=== PATIENT | male | born 1945 | race Caucasian/White ===

== ENCOUNTER → 2016-09-15 | Outpatient (CLI) | payer OTHER, BC | LOC: MMPC 09:00 | DX: Z79.01 Long term (current) use of anticoagulants (principal); Z51.81 Encounter for therapeutic drug level monitoring; Z95.2 Presence of prosthetic heart valve | CPT/HCPCS: 85610 ==

== ENCOUNTER → 2016-10-13 | Outpatient (CLI) | payer OTHER, BC | LOC: MMPC 09:00 | DX: Z79.01 Long term (current) use of anticoagulants (principal); Z51.81 Encounter for therapeutic drug level monitoring; Z95.2 Presence of prosthetic heart valve | CPT/HCPCS: 85610 ==

== ENCOUNTER → 2016-10-15 | Outpatient (CLI) | payer OTHER, BC ==
[2016-10-15 10:44] LABS: ASPARTATE AMINO TRANSFERASE 53 IU/L (21-57); BILIRUBIN,TOTAL 0.6 mg/dL (0.3-1.2); BLOOD UREA NITROGEN 23 mg/dL (7-22); CALCIUM 10.3 mg/dL (8.7-10.7); CHLORIDE 98 meq/L (98-112); EST GLOMERULAR FILTRATION > 60 (>60 ml/min/1.73m(2)); GLUCOSE 113 mg/dL (78-110); POTASSIUM 5.3 meq/L (3.8-5.2); SODIUM 136 meq/L (135-145); TOTAL PROTEIN 7.8 g/dL (6.1-8.0)
[2016-10-15 10:46] LABS: HEMOGLOBIN A1C 7.61 % (4.2-6.0); MEAN BLOOD GLUCOSE (CALC) 167.413 mg/dL
== END ==
LOC: MOB LAB 09:36
DX: E11.9 Type 2 diabetes mellitus without complications (principal); E78.5 Hyperlipidemia, unspecified
CPT/HCPCS: 36415; 80053; 83036

== ENCOUNTER → 2016-10-23 | Outpatient (CLI) | payer OTHER, BC | LOC: MMPC 09:00 | DX: Z79.01 Long term (current) use of anticoagulants (principal); Z51.81 Encounter for therapeutic drug level monitoring; Z95.2 Presence of prosthetic heart valve | CPT/HCPCS: 85610 ==

== ENCOUNTER → 2016-11-03 | Outpatient (CLI) | payer OTHER, BC ==
[2016-11-03 11:29] LABS: ASPARTATE AMINO TRANSFERASE 45 IU/L (21-57); BILIRUBIN,TOTAL 0.6 mg/dL (0.3-1.2); BLOOD UREA NITROGEN 21 mg/dL (7-22); BUN/CREATININE RATIO 23.33 (6-20); CALCIUM 9.6 mg/dL (8.7-10.7); CHLORIDE 100 meq/L (98-112); CREATININE 0.9 mg/dL (0.70-1.50); EST GLOMERULAR FILTRATION > 60 (>60 ml/min/1.73m(2)); GLUCOSE 220 mg/dL (78-110); POTASSIUM 5.5 meq/L (3.8-5.2); SODIUM 137 meq/L (135-145); TOTAL PROTEIN 7.3 g/dL (6.1-8.0)
== END ==
LOC: MOB LAB 08:09
PROVIDERS: ATTEND Nurse Practitioner Family
DX: I50.9 Heart failure, unspecified (principal)
CPT/HCPCS: 36415; 80053; 80162

== ENCOUNTER → 2016-11-05 | Outpatient (CLI) | payer OTHER, BC ==
[2016-11-05 16:21] LABS: HEMOGLOBIN A1C 7.14 % (4.2-6.0); MEAN BLOOD GLUCOSE (CALC) 151.762 mg/dL
[2016-11-05 16:38] LABS: ASPARTATE AMINO TRANSFERASE 45 IU/L (21-57); BILIRUBIN,TOTAL 0.5 mg/dL (0.3-1.2); BLOOD UREA NITROGEN 19 mg/dL (7-22); BUN/CREATININE RATIO 17.27 (6-20); CALCIUM 9.7 mg/dL (8.7-10.7); CHLORIDE 98 meq/L (98-112); CREATININE 1.1 mg/dL (0.70-1.50); EST GLOMERULAR FILTRATION > 60 (>60 ml/min/1.73m(2)); GLUCOSE 192 mg/dL (78-110); POTASSIUM 4.6 meq/L (3.8-5.2); SODIUM 137 meq/L (135-145); TOTAL PROTEIN 7.3 g/dL (6.1-8.0)
== END ==
LOC: MOB LAB 14:49
DX: E11.9 Type 2 diabetes mellitus without complications (principal)
CPT/HCPCS: 36415; 80053; 83036

== ENCOUNTER → 2016-11-20 | Outpatient (CLI) | payer OTHER, BC ==
[2016-11-20 12:05] LABS: BLOOD UREA NITROGEN 16 mg/dL (7-22); BUN/CREATININE RATIO 17.77 (6-20); CALCIUM 9.8 mg/dL (8.7-10.7); CHLORIDE 99 meq/L (98-112); CREATININE 0.9 mg/dL (0.70-1.50); EST GLOMERULAR FILTRATION > 60 (>60 ml/min/1.73m(2)); GLUCOSE 180 mg/dL (78-110); POTASSIUM 5.6 meq/L (3.8-5.2); SODIUM 135 meq/L (135-145)
== END ==
LOC: MOB LAB 08:34
PROVIDERS: ATTEND Internal Medicine Cardiovascular Disease
DX: I42.0 Dilated cardiomyopathy (principal)
CPT/HCPCS: 36415; 80048; 80162

== ENCOUNTER → 2016-11-21 | Outpatient (CLI) | payer OTHER, BC ==
[2016-11-21 16:13] LABS: BILIRUBIN,TOTAL 0.5 mg/dL (0.3-1.2); BUN/CREATININE RATIO 15.38 (6-20); CALCIUM 9.4 mg/dL (8.7-10.7); CREATININE 1.3 mg/dL (0.70-1.50); POTASSIUM 4.6 meq/L (3.8-5.2); TOTAL PROTEIN 7.9 g/dL (6.1-8.0)
== END ==
LOC: LAB 15:18
PROVIDERS: ATTEND Internal Medicine Cardiovascular Disease
DX: I42.0 Dilated cardiomyopathy (principal)
CPT/HCPCS: 36415; 80053; 80162

== ENCOUNTER → 2016-12-16 | Outpatient (CLI) | payer OTHER, BC ==
[2016-12-16 08:44] LABS: BLOOD UREA NITROGEN 19 mg/dL (7-22); BUN/CREATININE RATIO 15.83 (6-20); CALCIUM 9.7 mg/dL (8.7-10.7); EST GLOMERULAR FILTRATION > 60 (>60 ml/min/1.73m(2))
== END ==
LOC: LAB 08:12
PROVIDERS: ATTEND Internal Medicine Cardiovascular Disease
DX: I42.0 Dilated cardiomyopathy (principal)
CPT/HCPCS: 36415; 80048; 80162

== ENCOUNTER → 2016-12-17 | Outpatient (CLI) | payer OTHER, BC ==
[2016-12-17 10:36] LABS: BLOOD UREA NITROGEN 20 mg/dL (7-22); CALCIUM 9.5 mg/dL (8.7-10.7); EST GLOMERULAR FILTRATION > 60 (>60 ml/min/1.73m(2))
== END ==
LOC: LAB 09:32
PROVIDERS: ATTEND Internal Medicine Cardiovascular Disease
DX: I42.0 Dilated cardiomyopathy (principal)
CPT/HCPCS: 36415; 80048

== ENCOUNTER → 2016-12-18 | Outpatient (CLI) | payer OTHER, BC | LOC: MMPC 09:00 | DX: Z79.01 Long term (current) use of anticoagulants (principal); Z51.81 Encounter for therapeutic drug level monitoring; Z95.2 Presence of prosthetic heart valve | CPT/HCPCS: 85610 ==

== ENCOUNTER → 2017-01-19 | Outpatient (CLI) | payer OTHER, BC | LOC: MMPC 09:00 | DX: Z79.01 Long term (current) use of anticoagulants (principal); Z51.81 Encounter for therapeutic drug level monitoring; Z95.2 Presence of prosthetic heart valve | CPT/HCPCS: 85610 ==

== ENCOUNTER → 2017-02-11 | Outpatient (CLI) | payer OTHER, BC ==
[2017-02-11 12:38] LABS: HEMOGLOBIN A1C 7.46 % (4.2-6.0)
[2017-02-11 12:44] LABS: BLOOD UREA NITROGEN 23 mg/dL (7-22); CALCIUM 9.6 mg/dL (8.7-10.7); EST GLOMERULAR FILTRATION > 60 (>60 ml/min/1.73m(2))
== END ==
LOC: MOB LAB 11:37
DX: E11.9 Type 2 diabetes mellitus without complications (principal); E55.9 Vitamin D deficiency, unspecified; I49.9 Cardiac arrhythmia, unspecified; G47.33 Obstructive sleep apnea (adult) (pediatric); E78.5 Hyperlipidemia, unspecified; S06.9X9D Unspecified intracranial injury with loss of consciousness of unspecified duration, subsequent encounter; I50.22 Chronic systolic (congestive) heart failure; Z12.5 Encounter for screening for malignant neoplasm of prostate
CPT/HCPCS: 36415; 80048; 82306; 83036; 84443; 99213; G0103; G0463

== ENCOUNTER → 2017-02-13 | Outpatient (CLI) | payer OTHER, BC | LOC: MMPC 09:00 | DX: Z79.01 Long term (current) use of anticoagulants (principal); Z51.81 Encounter for therapeutic drug level monitoring; Z95.2 Presence of prosthetic heart valve | CPT/HCPCS: 85610 ==

== ENCOUNTER → 2017-02-24 | Outpatient (CLI) | payer OTHER, BC | LOC: MMPC 11:11 | PROVIDERS: ATTEND Surgery | DX: Z90.49 Acquired absence of other specified parts of digestive tract (principal) | CPT/HCPCS: 99213; G0463 ==

== ENCOUNTER → 2017-03-09 | Outpatient (CLI) | payer OTHER, BC | LOC: MMPC 09:00 | DX: Z79.01 Long term (current) use of anticoagulants (principal); Z51.81 Encounter for therapeutic drug level monitoring; Z95.2 Presence of prosthetic heart valve | CPT/HCPCS: 85610 ==

== ENCOUNTER 2017-03-11 09:57 | Day surgery (SDC) | payer OTHER, BC ==
[~2017-03-11 09:57] MED LIST: AMPICILLIN/SULBACTAM 3 GM VIAL IV ONE; LIDOCAINE W/ SODIUM BICARB 0.5 ML SYR ONE; Lactated Ringers 1,000 ML PRIMARY IV ONE; MIDAZOLAM 5 MG/1 ML ONE; Sodium Chloride 0.9% 100 ML IV ONE; fentaNYL Inj 100 MCG/2 ML VIAL ONE
--- NOTE | 2017-03-11 10:23 | EKG ---
[address] [address] Measurements Intervals [place] Rate: 71 P: [place]: 0 QRS: -33 QRSD: 158 T: 149 QT: 441 QTc: 464 Interpretive Statements ELECTRONIC VENTRICULAR PACEMAKER ABNORMAL RHYTHM ECG No previous ECG available for comparison Electronically Signed On 03-11-17 17:33:18 MDT by Andrei Perdomo [id number]
[2017-03-11] MEDS ORDERED: AMPICILLIN/SULBACTAM 3 GM VIAL IV ONE (10:41)
[2017-03-11] MEDS ORDERED: Sodium Chloride 0.9% 100 ML IV ONE (10:41)
--- NOTE | 2017-03-11 11:23 | GEN.OPNOTE ---
Colonoscopy Procedure Note Surgery Date: 03/11/17 Preoperative Diagnosis: Colon cancer screening Postoperative Diagnosis: Colon cancer screening. Colon polyps at 2018 and 17 cm Procedure: Colonoscopy snare polypectomy Surgeon: Iker Grimaldo MD Anesthesia Provider: Toni Escalante CRNA Anesthesia Type: MAC Indications: Colon cancer screening. 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 Patient on warfarin therapy has been bridged with Lovenox Findings: Prep : Very good Cecum : Scope advanced all way to cecum. Ileocecal valve clearly identified. Patient normal. Cecum Ascending : Ascending colons free from disease Transverse : Transverse colon free from disease Sigmoid : Descending and sigmoid colon free from disease Rectum : Rectum had 3 small polyps 1 measured actually 20 cm second at 18 third at 17. The polyps at 20 and 17 Center meters were basically destroyed by cautery wanted 18 cm was sent in for pathology Digital Rectal Exam : No rectal masses A lubricated flexible colonoscope was inserted and passed to the blind end of the cecum. Additional Details: Patient resume his Coumadin tonight. INR checked at 11:00 on March 14 he is a continues Lovenox injections
[2017-03-11 13:40] VITALS: RESP 20; TEMP 98.2
== END 2017-03-11 11:54 | disposition home or self-care (01) ==
LOC: SDSC 09:57
PROVIDERS: ATTEND Surgery
DX: Z12.11 Encounter for screening for malignant neoplasm of colon (principal); K63.5 Polyp of colon
CPT/HCPCS: 45385; 93005; 93010; J2704; J3010; J0295; J2250; J7050; J7120

== ENCOUNTER → 2017-03-14 | Outpatient (CLI) | payer OTHER, BC | LOC: MMPC 09:00 | DX: Z79.01 Long term (current) use of anticoagulants (principal); Z51.81 Encounter for therapeutic drug level monitoring; Z95.2 Presence of prosthetic heart valve | CPT/HCPCS: 85610 ==

== ENCOUNTER → 2017-03-16 | Outpatient (CLI) | payer OTHER, BC | LOC: MMPC 09:00 | DX: Z79.01 Long term (current) use of anticoagulants (principal); Z51.81 Encounter for therapeutic drug level monitoring; Z95.2 Presence of prosthetic heart valve | CPT/HCPCS: 85610 ==

== ENCOUNTER → 2017-03-19 | Outpatient (CLI) | payer OTHER, BC | LOC: MMPC 09:00 | DX: Z79.01 Long term (current) use of anticoagulants (principal); Z51.81 Encounter for therapeutic drug level monitoring; Z95.2 Presence of prosthetic heart valve | CPT/HCPCS: 85610 ==

== ENCOUNTER → 2017-03-25 | Outpatient (CLI) | payer OTHER, BC | LOC: MMPC 09:00 | DX: Z79.01 Long term (current) use of anticoagulants (principal); Z51.81 Encounter for therapeutic drug level monitoring; Z95.2 Presence of prosthetic heart valve | CPT/HCPCS: 85610 ==

== ENCOUNTER → 2017-03-31 | Outpatient (CLI) | payer OTHER, BC | LOC: MMPC 09:00 | DX: Z79.01 Long term (current) use of anticoagulants (principal); Z51.81 Encounter for therapeutic drug level monitoring; Z95.2 Presence of prosthetic heart valve | CPT/HCPCS: 85610 ==

== ENCOUNTER → 2017-04-08 | Outpatient (CLI) | payer OTHER, BC | LOC: MMPC 09:00 | DX: Z79.01 Long term (current) use of anticoagulants (principal); Z51.81 Encounter for therapeutic drug level monitoring; Z95.2 Presence of prosthetic heart valve | CPT/HCPCS: 85610 ==

== ENCOUNTER → 2017-04-13 | Outpatient (CLI) | payer OTHER, BC | LOC: MMPC 09:00 | DX: Z79.01 Long term (current) use of anticoagulants (principal); Z51.81 Encounter for therapeutic drug level monitoring; Z95.2 Presence of prosthetic heart valve | CPT/HCPCS: 85610 ==

== ENCOUNTER → 2017-04-29 | Outpatient (CLI) | payer OTHER, BC | LOC: MMPC 09:00 | DX: Z79.01 Long term (current) use of anticoagulants (principal); Z51.81 Encounter for therapeutic drug level monitoring; Z95.2 Presence of prosthetic heart valve | CPT/HCPCS: 85610 ==